=== PATIENT | female | born 1990 | race Caucasian/White ===

== ENCOUNTER 2016-12-14 13:51 | Emergency (ER) | payer MEDICAID ==
[~2016-12-14] VITALS: Ht 165.1 cm; Wt 88.0 kg
[~2016-12-14 13:51] MED LIST: CEPH500C3 PO; PERC5TAB12 PO; PROM25SU8 PO
[2016-12-14 13:56] VITALS: BP 143/81; PULSE 114; RESP 16; TEMP 98.9; O2SAT 98
--- NOTE | 2016-12-14 14:46 | PD ---
HPI Chief Complaint: Musculoskeletal Complaint Time Seen by Provider: 14:30 Travel History International Travel<30 days: No Contact w/Intl Traveler<30days: No Traveled to known affect area: No History of Present Illness HPI 26 year-old female presents to the emergency room for evaluation of right hand and wrist pain for the last 2 weeks. Pain started after she punched a wall. Localized to the fifth metacarpal with radiation into the wrist. Patient reports moderate pain worse with range of motion of the pinky finger. States last night she was lifting a mattress and she had an acute worsening of symptoms. Her friend gave her a [place] which she states greatly improved her symptoms. She has not taken anything else for pain. Denies chronic medical conditions or daily medications. PFSH Past Medical History Medical History: Denies Significant Hx Diminished Hearing: No Immunizations Current: No Tetanus Vaccination: Unknown Influenza Vaccination: No ?: Not LMP: 11/30/16 : 4 Para: 3 Miscarriage: 1 Past Surgical History Surgical History: No Previous Surgery Social History Alcohol Use: Yes (Occ./social) Tobacco Use: Yes (1 PPD) Substance Use: No Allergies-Medications (Allergen,Severity, Reaction): Coded Allergies: No Known Allergies (Verified , 12/14/16) Reported Meds & Prescriptions Reported Meds & Active Scripts Active Review of Systems Except as stated in HPI: all other systems reviewed are Neg Physical Exam Narrative GENERAL: Well-nourished, well-developed female in no acute distress. Afebrile. Ambulatory. SKIN: Focused skin assessment warm/dry. No erythema or ecchymosis. HEAD: Normocephalic. EYES: No scleral icterus. No injection or drainage. NECK: Supple, trachea midline. No JVD or lymphadenopathy. CARDIOVASCULAR: Regular rate and rhythm without murmurs, gallops, or rubs. RESPIRATORY: Breath sounds equal bilaterally. No accessory muscle use. MUSCULOSKELETAL: No cyanosis. Moderate edema especially over the fifth metacarpal. Full range of motion of the right hand. Tenderness to palpation of the proximal fifth metacarpal. No obvious deformity. 2+ radial pulses and less than 2 second capillary refill distally. Moderate scaphoid tenderness. Data Data Last Documented VS Vital Signs Date Time Temp Pulse Resp B/P Pulse Ox O2 Delivery O2 Flow Rate FiO2 12/14/16 13:56 98.9 114 16 143/81 98 Orders Hand, Complete ([id number]) (12/14/16 ) Forearm (2vws) (12/14/16 ) [facility] Medical Decision Making Medical Screen Exam Complete: Yes Emergency Medical Condition: Yes Medical Record Reviewed: Yes Differential Diagnosis sprain, fracture, dislocation Narrative Course 26-year-old female presents to the emergency room for evaluation of right floor hand pain and swelling after punching a wall 2 weeks ago. States she lifted a mattress last night and had acute worsening of symptoms. Physical exam reveals moderate edema especially over the fifth metacarpal. Full range of motion of the right hand. Tenderness to palpation of the proximal fifth metacarpal. No obvious deformity. 2+ radial pulses and less than 2 second capillary refill distally. Has been stable. Right upper extremity is neurovascularly intact. Given patient's bony tenderness to palpation in additional to snuffbox tenderness, she will be treated conservatively with an ulnar gutter splint. Patient was told to follow-up with her primary care physician for repeat x-rays in 1 week. Given information to the [place] clinic. Told to return sooner for worsening symptoms. She understands and agrees to plan. Diagnosis Primary Impression: Right hand pain Referrals: [facility] Primary Care Physician Patient Instructions: General Instructions, Hand Fracture (ED) Additional Instructions: Take ibuprofen with food as directed, as needed for pain. Elevate, apply ice to the affected area for 20 minutes at a time, as needed for pain and swelling. Follow-up with a primary care physician in one week. Return to the emergency room for worsening symptoms. Med/Other Pt SpecificInfo: Prescription(s) given Scripts No Active Prescriptions or Reported Meds Disposition: 01 DISCHARGE HOME Condition: Stable Melody Blank Dec 14, 2016 14:46
--- NOTE | 2016-12-14 15:42 | RADRPT ---
EXAM DATE/TIME: 12/14/2016 14:54 [facility] COMPARISON: No previous studies available for comparison. INDICATIONS : Right hand and forearm pain post striking wall, pain 5th metacarpal area. MEDICAL HISTORY : None. SURGICAL HISTORY : None. ENCOUNTER: Initial ACUITY: 2 weeks PAIN SCORE: 7/10 LOCATION: Right upper extremity FINDINGS: Three view examination of the right hand demonstrates no soft tissue swelling, dislocation, or fractu re. The carpal bones appear intact. The interphalangeal and metacarpophalangeal joints are intact. Bony mineralization is normal. CONCLUSION: Normal examination for a patient of this age. Malcolm Kearney MD on December 14, 2016 at 15:25 Board Certified Radiologist. This report was verified electronically.
--- NOTE | 2016-12-14 15:43 | RADRPT ---
EXAM DATE/TIME: 12/14/2016 14:57 [facility] COMPARISON: No previous studies available for comparison. INDICATIONS : Right arm pain post striking wall. MEDICAL HISTORY : None. SURGICAL HISTORY : None. ENCOUNTER: Initial ACUITY: 2 weeks PAIN SCORE: 7/10 LOCATION: Right upper extremity FINDINGS: Two view examination of the right forearm demonstrates no evidence of fracture or dislocation. Bony mineralization is normal. The soft tissue structures are intact. CONCLUSION: Unremarkable examination of the right forearm. Malcolm Kearney MD on December 14, 2016 at 15:41 Board Certified Radiologist. This report was verified electronically.
[2016-12-14] MEDS ORDERED: IBUP800T23 PO (15:59)
== END 2016-12-14 16:36 | disposition home or self-care (01) ==
LOC: PHEFT 13:51
DX: M79.641 Pain in right hand (principal); M25.531 Pain in right wrist
CPT/HCPCS: 29125; 73090; 73130

== ENCOUNTER 2017-10-02 16:21 | Emergency (ER) | payer MEDICAID, OTHER ==
[~2017-10-02] VITALS: Ht 167.6 cm; Wt 99.0 kg
[~2017-10-02 16:21] MED LIST changes: -CEPH500C3 PO; +IBUP1TAB7 PO; -PERC5TAB12 PO; -PROM25SU8 PO
[2017-10-02 16:25] VITALS: BP 163/85; PULSE 127; RESP 20; TEMP 98.5; O2SAT 100
--- NOTE | 2017-10-02 16:51 | PD ---
HPI Chief Complaint: Injury Time Seen by Provider: 16:34 Travel History International Travel<30 days: No Contact w/Intl Traveler<30days: No Traveled to known affect area: No History of Present Illness HPI 27-year-old female presents emergency department for evaluation of right foot pain that started September 23. Says that she was chasing her children around the house when she caught her fourth and fifth toe on a wall resulting in pain. Says that initially the fifth toe was laterally displaced but her boyfriend was able to reduce and ruby tape the toe. She says she actually has this injury frequently but normally has no issues after a few days. She is concerned today because the pain has persisted for over 1 week. Says her pain located near the fourth and fifth toe and along the fifth metatarsal and is mild to moderate in severity, nonradiating, worse with walking. She has no other complaints today. PFSH Past Medical History Medical History: Denies Significant Hx Diminished Hearing: No Immunizations Current: No Tetanus Vaccination: < 5 Years Influenza Vaccination: No ?: Not LMP: 09/05/17 : 4 Para: 3 Miscarriage: 1 Past Surgical History Surgical History: No Previous Surgery Social History Alcohol Use: Yes (Occ./social) Tobacco Use: Yes (1 PPD) Substance Use: No Allergies-Medications (Allergen,Severity, Reaction): Coded Allergies: No Known Allergies (Verified Adverse Reaction, Unknown, 10/02/17) Reported Meds & Prescriptions Reported Meds & Active Scripts Active No Active Prescriptions or Reported Medications Review of Systems Except as stated in HPI: all other systems reviewed are Neg Physical Exam Narrative GENERAL: Well-nourished, well-developed patient, in NAD SKIN: Focused skin assessment warm/dry. No rashes or lesions. HEAD: Normocephalic. Atraumatic. EYES: No scleral icterus. No injection or drainage. THROAT: No pharyngeal injection, exudates, or tonsillar hypertrophy. Airway is patent. NECK: Supple, trachea midline. No JVD or lymphadenopathy. No meningismus. CARDIOVASCULAR: Regular rate and rhythm without murmurs, gallops, or rubs. RESPIRATORY: Breath sounds equal bilaterally. No accessory muscle use. No wheezes, rales, or rhonchi MUSCULOSKELETAL: No cyanosis, or edema. Right foot- TTP to 5th toe and 5th metatarsal, mild edema when compared to the left. full ROM of ankle. limited flexion of toes due to pain. No obvious deformities. neurovascularly intact. BACK: Nontender without obvious deformity. No CVA tenderness. Data Data Last Documented VS Vital Signs Date Time Temp Pulse Resp B/P (MAP) Pulse Ox O2 Delivery O2 Flow Rate FiO2 10/02/17 16:43 16 100 Room Air 10/02/17 16:25 98.5 127 163/85 (111) Orders Orders Foot, Complete ([id number]) (10/02/17 ) Support Splint (10/02/17 17:17) Ed Discharge Order (10/02/17 17:36) MDM Medical Decision Making Medical Screen Exam Complete: Yes Emergency Medical Condition: Yes Differential Diagnosis Right foot fracture, contusion, sprain Narrative Course 27-year-old female presents emergency department for evaluation of right foot pain that started September 23. Says that she was chasing her children around the house when she caught her fourth and fifth toe on a wall resulting in pain. Says that initially the fifth toe was laterally displaced but her boyfriend was able to reduce and ruby tape the toe. She says she actually has this injury frequently but normally has no issues after a few days. She is concerned today because the pain has persisted for over 1 week. Says her pain located near the fourth and fifth toe and along the fifth metatarsal and is mild to moderate in severity, nonradiating, worse with walking. She has no other complaints today. Vital signs show elevated heart rate at 127BPM. After review of the EMR, it appears that patient has an elevated heart rate normally. In December 2016, her heart rate was 114. Physical exam demonstrates a 27-year-old female slightly anxious, ambulatory in the emergency department. Slight edema of the right foot compared to the left. Tenderness palpation of the fifth toe and metatarsal. Neurovascularly intact. X-ray ordered to assess for acute process. X-ray shows a nondisplaced fracture involving the fifth proximal phalanx. Patient was placed in a postop shoe with a ruby tape. Advised that she follow-up with podiatry. Tylenol or Motrin per package instructions for pain. Diagnosis Primary Impression: Toe fracture, right Qualified Codes: S92.514A - Nondisplaced fracture of proximal phalanx of right lesser toe(s), initial encounter for closed fracture [facility] Patient Instructions: General Instructions Additional Instructions: Use ice or heat for symptom relief. If no contraindications, you may use Tylenol or Motrin per package instructions for your pain. Elevate the joint above the heart to reduce swelling. You may use compression with Gerry wrap or similar to reduce swelling. If symptoms persist or worsen, return to the emergency department. Follow up with your primary care physician within 2 days. Use the postop shoe as needed for comfort. Scripts No Active Prescriptions or Reported Meds Disposition: 01 DISCHARGE HOME Condition: Stable Roz Pacheco October 02, 2017 16:51
--- NOTE | 2017-10-02 17:15 | RADRPT ---
EXAM DATE: 10/02/2017 5:10 PM EDT AGE/SEX: 27 years / Female INDICATIONS: Right anterior, distal foot pain, swelling and bruising. Patient hit her right foot on the wall a week ago. CLINICAL DATA: This is the patient's initial encounter. Patient reports that signs and symptoms have been present for 1 week and indicates a pain score of 10/10. MEDICAL/SURGICAL HISTORY: None. None. COMPARISON: No prior [facility] exams available for comparison. FINDINGS: There is a nondisplaced fracture involving the fifth proximal phalanx. There appears to be an old healed fracture involving the third proximal phalanx. No joint dislocation is demonstrated. Osseous density is normal. Soft tissues are unremarkable. No radiopaque foreign bodies seen. CONCLUSION: Nondisplaced fracture involving the fifth proximal phalanx. Electronically signed by: Mitchel Waterman MD 10/02/2017 5:13 PM EDT
== END 2017-10-02 17:58 | disposition home or self-care (01) ==
LOC: PHEFT 16:21
DX: S92.514A Nondisplaced fracture of proximal phalanx of right lesser toe(s), initial encounter for closed fracture (principal); W22.01XA Walked into wall, initial encounter; Y93.02 Activity, running; Y92.008 Other place in unspecified non-institutional (private) residence as the place of occurrence of the external cause; Z72.0 Tobacco use
CPT/HCPCS: 73630; 99283; L3260